=== PATIENT | male | born 1940 | race Asian ===

== ENCOUNTER 2024-08-15 13:13 | Inpatient (IN) | payer BC ==
[~2024-08-15] VITALS: Ht 160 cm; Wt 57.6 kg
[2024-08-15] VITALS (13 sets, daily range): BP systolic 75–133; BP diastolic 35–73; TEMP 99.9; O2SAT 91–95
[2024-08-15] MEDS: IV LR 1000 ML 1,000 ML BAG IV ONE (13:43)
[2024-08-15] MEDS: CEFEPIME 1 GM in IV D5W 50 ML IV ONE (13:45)
[2024-08-15] MEDS: VANCOMYCIN 1 GM in IV D5W 250 ML IV ONE (13:45)
[2024-08-15 14:02] LABS: CARBON DIOXIDE 25 mmol/L (21-32); CHLORIDE 98 mmol/L (98-107); CREATININE 1.1 mg/dL (0.6-1.3); GLUCOSE 344 mg/dL (74-106); POTASSIUM 4.6 mmol/L (3.5-5.1); SODIUM SERUM 132 mmol/L (136-145); UREA NITROGEN, BLOOD 27 mg/dL (7-18)
[2024-08-15 14:07] LABS: BASOPHILS # (AUTO) 0.1 K/uL (0.0-0.2); BASOPHILS % (AUTO) 0.7 % (0.0-2.0); EOSINOPHILS # (AUTO) 0.2 K/uL (0.0-0.7); EOSINOPHILS % (AUTO) 2.7 % (0.0-6.0); HEMATOCRIT 30 % (39-51); HEMOGLOBIN 10.1 g/dL (13.5-17.5); LYMPHOCYTES # (AUTO) 0.2 K/uL (0.8-4.8); LYMPHOCYTES % (AUTO) 2.2 % (20.0-44.0); MEAN CORPUSCULAR HEMOGLOBIN 27 PG (26.0-33.0); MEAN CORPUSCULAR HGB CONC 33 g/dl (31.0-36.0); MEAN CORPUSCULAR VOLUME 81 fL (80-96); MONOCYTES # (AUTO) 0.6 K/uL (0.1-1.30); MONOCYTES % (AUTO) 7.8 % (2.0-12.0); NEUTROPHILS # (AUTO) 6.9 K/uL (1.8-8.9); NEUTROPHILS % (AUTO) 86.6 % (43.0-81.0); PLATELET COUNT (AUTO) 452 K/uL (150-450); RED BLOOD CELL COUNT(AUTO) 3.75 MIL/uL (4.5-6.0); RED CELL DISTRIBUTION WIDTH 19.1 % (11.5-15.0); WHITE BLOOD COUNT (AUTO) 7.9 K/uL (4.3-11.0)
[2024-08-15 14:08] LABS: ALANINE AMINOTRANSFERASE 26 U/L (12-78); ALBUMIN 2.5 g/dL (3.4-5.0); ALKALINE PHOSPHATASE 118 U/L (46-116); ASPARTATE AMINOTRANSFERASE 26 U/L (15-37); BILIRUBIN,DIRECT 0.2 mg/dL (0.0-0.2); BILIRUBIN,TOTAL 0.7 mg/dL (0.2-1.0)
[2024-08-15 14:14] LABS: LACTIC ACID 2.8 mmol/L (0.4-2.0)
[2024-08-15 14:16] LABS: INR 1.08 (0.91-1.10); PARTIAL THROMBOPLASTIN TIME 26.7 SEC (24.3-34.3); PROTHROMBIN TIME 11.4 SECS (9.2-11.1)
[2024-08-15] MEDS ORDERED: CARV3.12 PO (14:16)
[2024-08-15] MEDS ORDERED: LEVO5TAB13 PO (14:16)
[2024-08-15] MEDS ORDERED: FURO-145 PO (14:16)
[2024-08-15] MEDS ORDERED: SACU1TAB PO (14:16)
[2024-08-15] MEDS ORDERED: EPLE25TA10 PO (14:16)
[2024-08-15] MEDS ORDERED: GABA300C PO (14:16)
[2024-08-15] MEDS ORDERED: OMEP20CA15 PO (14:16)
[2024-08-15] MEDS ORDERED: SITA100T PO (14:17)
[2024-08-15] MEDS ORDERED: GLIP5TAB13 PO (14:17)
[2024-08-15] MEDS ORDERED: MULT-1169 PO (14:17)
[2024-08-15] MEDS ORDERED: EMPA25TA PO (14:17)
[2024-08-15] MEDS ORDERED: ATOR40TA PO (14:17)
[2024-08-15] MEDS ORDERED: CHOL100062 PO (14:17)
[2024-08-15] MEDS ORDERED: FINA5TAB11 PO (14:17)
[2024-08-15] MEDS ORDERED: NORT25CA PO (14:17)
[2024-08-15] MEDS ORDERED: [UNRECOGNIZED DRUG - OTHER] PO (14:17)
[2024-08-15] MEDS ORDERED: HYDR-500 PO (14:17)
[2024-08-15] MEDS ORDERED: ATOV750O4 PO (14:17)
[2024-08-15] MEDS ORDERED: ASPI-1169 PO (14:17)
[2024-08-15] MEDS ORDERED: MIRT7.5T10 PO (14:17)
[2024-08-15] MEDS ORDERED: CALC-1239 PO (14:17)
[2024-08-15] MEDS ORDERED: MAGN400T26 PO (14:17)
[2024-08-15] MEDS ORDERED: MUPI15CR TP (14:17)
[2024-08-15] MEDS ORDERED: TAMS-12 PO (14:17)
[2024-08-15] MEDS ORDERED: AZEL137S7 NS (14:17)
[2024-08-15] MEDS ORDERED: METF-442 PO (14:17)
[2024-08-15] MEDS: ACETAMINOPHEN ES 500 MG TABLET PO ONE (14:51)
[2024-08-15] MEDS ORDERED: ACETAMINOPHEN ES 500 MG TABLET ONE (14:51)
[2024-08-15 16:24] LABS: APPEARANCE,URINE CLEAR (CLEAR); BILIRUBIN,URINE NEGATIVE (NEGATIVE); BLOOD, URINE NEGATIVE Ery/uL (NEGATIVE); COLOR,URINE YELLOW (YELLOW); KETONES,URINE NEGATIVE (NEGATIVE); LEUKOCYTE ESTERASE ,URINE NEGATIVE (NEGATIVE); NITRITE, URINE NEGATIVE (NEGATIVE); PH,URINE 5.5 (5.0-8.0); PROTEIN,URINE NEGATIVE (NEGATIVE); UGLUCOSE 3+ mg/dL (NEGATIVE); UROBILINOGEN,URINE 0.2 EU/dL (0.2)
[2024-08-15 16:40] LABS: ADD URINE CULTURE NO; BACTERIA,URINE None seen /HPF (None Seen); RBC,URINE 0-2 /HPF (0-2); WBC,URINE 0-2 /HPF (0-3)
[2024-08-15 16:41] LABS: FINE GRANULAR CASTS,URINE Few /LPF (None Seen); HYALINE CASTS, URINE Few /LPF (None Seen); TRICHOMONAS,URINE None Seen /HPF (None Seen); URIC ACID CRYSTALS,URINE Few /HPF (None Seen); YEAST,URINE Rare /HPF (None Seen)
[2024-08-15] MEDS: IV NS 0.9% 1,000 ML BAG IV ONE (16:53)
[2024-08-15] MEDS ORDERED: NOREPINEPHRINE 8MG/250ML RTU 250 ML IV ONE (18:23)
[2024-08-15] MEDS: NOREPINEPHRINE 8 MG in IV D5W 242 ML IV PRN (18:37)
[2024-08-15] MEDS: LET SOLN TOPICAL 8 ML UDC TP ONE (18:51)
[2024-08-15] MEDS ORDERED: PHENYLEPHRINE 10 MG/ML VIAL ONE ×3 (18:53→20:00)
[2024-08-15] MEDS ORDERED: ONDANSETRON HCL/PF 4 MG/2 ML VIAL IVP PRN (20:00)
[2024-08-15] MEDS ORDERED: Z GUARD REMEDY 4 OZ OINT TP PRN (20:00)
[2024-08-15] MEDS ORDERED: NOREPINEPHRINE 8 MG in IV D5W 242 ML IV PRN (20:00)
[2024-08-15] MEDS: PHENYLEPHRINE 50 MG in IV NS 0.9% 245 ML IV PRN ×2 (20:11→20:49)
[2024-08-15] MEDS: IV LR 1000 ML 1,000 ML IV PRN (21:04)
[2024-08-15] MEDS: ENOXAPARIN SODIUM 40 MG/0.4 ML DISP.SYRIN SQ SCH (21:47)
[2024-08-15] MEDS: ATORVASTATIN 40 MG TABLET PO SCH (21:48)
[2024-08-16] VITALS (109 sets, daily range): BP systolic 50–158; BP diastolic 37–135; TEMP 97.8–99.9; O2SAT 74–100
[2024-08-16] MEDS: ACETAMINOPHEN 325 MG TABLET PO PRN (00:06)
[2024-08-16] MEDS: PHENYLEPHRINE 10 MG/ML VIAL ONE (01:37)
[2024-08-16] MEDS: diphenhydrAMINE HCL ELIX 25 MG/10 ML UDC PO PRN (01:55)
[2024-08-16] MEDS ORDERED: CEFEPIME 1 GM VIAL IM SCH (02:00)
[2024-08-16] MEDS ORDERED: CEFEPIME 1 GM VIAL ONE (02:05)
[2024-08-16] MEDS: CEFEPIME 1 GM in IV NS 0.9% 100 ML IV ONE (02:39)
[2024-08-16] MEDS: NOREPINEPHRINE 8 MG in IV D5W 242 ML IV PRN (03:41)
[2024-08-16 04:24] LABS: BASOPHILS # (AUTO) 0.1 K/uL (0.0-0.2); BASOPHILS % (AUTO) 1.2 % (0.0-2.0); EOSINOPHILS # (AUTO) 0.5 K/uL (0.0-0.7); EOSINOPHILS % (AUTO) 4.5 % (0.0-6.0); HEMATOCRIT 26 % (39-51); HEMOGLOBIN 8.7 g/dL (13.5-17.5); LYMPHOCYTES # (AUTO) 0.1 K/uL (0.8-4.8); MEAN CORPUSCULAR HEMOGLOBIN 27 PG (26.0-33.0); MEAN CORPUSCULAR HGB CONC 34 g/dl (31.0-36.0); MEAN CORPUSCULAR VOLUME 80 fL (80-96); MONOCYTES # (AUTO) 0.3 K/uL (0.1-1.30); MONOCYTES % (AUTO) 2.7 % (2.0-12.0); NEUTROPHILS % (AUTO) 90.6 % (43.0-81.0); PLATELET COUNT (AUTO) 384 K/uL (150-450); RED BLOOD CELL COUNT(AUTO) 3.25 MIL/uL (4.5-6.0); RED CELL DISTRIBUTION WIDTH 19.3 % (11.5-15.0)
[2024-08-16 04:37] LABS: CARBON DIOXIDE 23 mmol/L (21-32); CHLORIDE 103 mmol/L (98-107); CREATININE 1.5 mg/dL (0.6-1.3); GLUCOSE 226 mg/dL (74-106); MAGNESIUM 1.3 mg/dL (1.8-2.4); PHOSPHORUS 4.1 mg/dL (2.5-4.9); POTASSIUM 3.8 mmol/L (3.5-5.1); SODIUM SERUM 137 mmol/L (136-145); UREA NITROGEN, BLOOD 29 mg/dL (7-18)
[2024-08-16 04:40] LABS: CHOLESTEROL 58 mg/dL (<200); HDL CHOLESTEROL 24 mg/dL (40-60); LDL 25 mg/dL (0-99); TRIGLYCERIDES 77 mg/dL (30-150)
[2024-08-16 05:11] LABS: ANISOCYTOSIS 2+; BAND % (MANUAL) 8 % (0.0-5.0); BASOPHILS % (MANUAL) 1 % (0.0-2.0); EOSINOPHILS % (MANUAL) 4 % (0-4); LYMPHOCYTES % (MANUAL) 1 % (16-48); MONOCYTES % (MANUAL) 3 % (0-11.0); MYELOCYTES % 8 % (0-0); NEUTROPHILS % (MANUAL) 75 (42-76); PLATELET ESTIMATE ADEQUATE
[2024-08-16 05:12] LABS: OVALOCYTES 2+
[2024-08-16 05:39] LABS: ABG BASE EXCESS -0.8 mmol/L (-2.0-3.0); ABG OXYGEN SATURATION 92.8 % (94.0-98.0); ABG PCO2 32.3 mmHg (35.0-48.0); ABG PO2 68.2 mmHg (83.0-108.0); COHb 0.3 % (0.5-1.5); MetHb 0.3 % (0.0-1.5); O2Hb 92.2 % (94.0-97.0); SITE, ABG RIGHT BRACHIAL
[2024-08-16] MEDS ORDERED: HEPARIN INFUSION/D5W 500 ML IV PRN (09:30)
[2024-08-16] MEDS: GABAPENTIN 300 MG CAPSULE PO SCH (09:54)
[2024-08-16] MEDS: ASPIRIN 81 MG TAB.CHEW PO SCH (09:54)
[2024-08-16] MEDS: MAGNESIUM OXIDE 400 MG TABLET PO ONE (10:42)
[2024-08-16] MEDS: dexaMETHasone SOD PHOSPHATE 10 MG/ML VIAL IV ONE (10:42)
[2024-08-16] MEDS: HEPARIN INFUSION/D5W 500 ML IV PRN (11:18)
[2024-08-16] MEDS: VANCOMYCIN 1 GM in IV D5W 250ml IV SCH (12:22)
[2024-08-16] MEDS ORDERED: hydrOXYzine HCL SYRUP 10 MG/5 ML UDC PO PRN (12:30)
[2024-08-16] MEDS: hydrOXYzine 10 MG TABLET PO PRN (12:50)
[2024-08-16 12:59] LABS: THYROID STIMULATING HORMONE 0.49 uIU/mL (0.358-3.74)
[2024-08-16] MEDS ORDERED: CEFEPIME 1 GM VIAL IV SCH (14:00)
[2024-08-16] MEDS: REMDESIVIR (CHARGED) 200 MG, *LOADING DOSE 1 EA in IV NS 0.9% 210 ML IV ONE (14:52)
[2024-08-16] MEDS: CEFEPIME 1 GM in IV D5W 50 ML IV SCH (16:23)
[2024-08-17] VITALS (105 sets, daily range): BP systolic 82–147; BP diastolic 44–125; TEMP 97.6–98.4; O2SAT 83–100
[2024-08-17 03:10] LABS: APPEARANCE,URINE CLEAR (CLEAR); BILIRUBIN,URINE NEGATIVE (NEGATIVE); BLOOD, URINE NEGATIVE Ery/uL (NEGATIVE); COLOR,URINE YELLOW (YELLOW); KETONES,URINE NEGATIVE (NEGATIVE); LEUKOCYTE ESTERASE ,URINE NEGATIVE (NEGATIVE); NITRITE, URINE NEGATIVE (NEGATIVE); PH,URINE 5.5 (5.0-8.0); PROTEIN,URINE NEGATIVE (NEGATIVE); UGLUCOSE 3+ mg/dL (NEGATIVE); UROBILINOGEN,URINE 0.2 EU/dL (0.2)
[2024-08-17 03:26] LABS: CREATININE, URINE 46.9 MG/DL (30.0-125.0); URINE TOTAL PROTEIN 31.8 mg/dL (0-11.9)
[2024-08-17 04:08] LABS: EOSINOPHIL,URINE None Seen
[2024-08-17 04:26] LABS: BASOPHILS # (AUTO) 0.6 K/uL (0.0-0.2); BASOPHILS % (AUTO) 3.6 % (0.0-2.0); EOSINOPHILS # (AUTO) 1.1 K/uL (0.0-0.7); EOSINOPHILS % (AUTO) 6.9 % (0.0-6.0); HEMATOCRIT 28 % (39-51); HEMOGLOBIN 9.2 g/dL (13.5-17.5); LYMPHOCYTES # (AUTO) 0.2 K/uL (0.8-4.8); LYMPHOCYTES % (AUTO) 1.4 % (20.0-44.0); MEAN CORPUSCULAR HEMOGLOBIN 26 PG (26.0-33.0); MEAN CORPUSCULAR HGB CONC 33 g/dl (31.0-36.0); MEAN CORPUSCULAR VOLUME 78 fL (80-96); MONOCYTES # (AUTO) 0.4 K/uL (0.1-1.30); MONOCYTES % (AUTO) 2.5 % (2.0-12.0); NEUTROPHILS # (AUTO) 13.1 K/uL (1.8-8.9); NEUTROPHILS % (AUTO) 85.6 % (43.0-81.0); PLATELET COUNT (AUTO) 352 K/uL (150-450); RED BLOOD CELL COUNT(AUTO) 3.54 MIL/uL (4.5-6.0); WHITE BLOOD COUNT (AUTO) 15.3 K/uL (4.3-11.0)
[2024-08-17 04:38] LABS: INR 1.32 (0.91-1.10); PARTIAL THROMBOPLASTIN TIME 61.8 SEC (24.3-34.3); PROTHROMBIN TIME 13.7 SECS (9.2-11.1)
[2024-08-17 04:41] LABS: ALBUMIN 1.9 g/dL (3.4-5.0); BILIRUBIN,DIRECT 0.2 mg/dL (0.0-0.2); BILIRUBIN,TOTAL 0.4 mg/dL (0.2-1.0); TOTAL PROTEIN, SERUM 4.8 g/dL (6.4-8.2)
[2024-08-17 04:44] LABS: ALANINE AMINOTRANSFERASE 23 U/L (12-78); ALBUMIN 1.8 g/dL (3.4-5.0); ALKALINE PHOSPHATASE 101 U/L (46-116); ASPARTATE AMINOTRANSFERASE 21 U/L (15-37); BILIRUBIN,TOTAL 0.4 mg/dL (0.2-1.0); CALCIUM, SERUM 8.6 mg/dL (8.5-10.1); CARBON DIOXIDE 26 mmol/L (21-32); CHLORIDE 106 mmol/L (98-107); CREATININE 1.1 mg/dL (0.6-1.3); GLUCOSE 254 mg/dL (74-106); MAGNESIUM 1.9 mg/dL (1.8-2.4); PHOSPHORUS 2.8 mg/dL (2.5-4.9); SODIUM SERUM 139 mmol/L (136-145); TOTAL PROTEIN, SERUM 4.9 g/dL (6.4-8.2); UREA NITROGEN, BLOOD 28 mg/dL (7-18)
[2024-08-17 04:46] LABS: CREATINE KINASE, TOTAL 215 U/L (39-308)
[2024-08-17 05:38] LABS: ANISOCYTOSIS 1+; BAND % (MANUAL) 15 % (0.0-5.0); EOSINOPHILS % (MANUAL) 5 % (0-4); LYMPHOCYTES % (MANUAL) 1 % (16-48); METAMYELOCYTES % 10 % (0-0); MONOCYTES % (MANUAL) 2 % (0-11.0); MYELOCYTES % 16 % (0-0); NEUTROPHILS % (MANUAL) 51 (42-76); PLATELET ESTIMATE ADEQUATE
[2024-08-17 05:39] LABS: OVALOCYTES 2+
[2024-08-17] MEDS: dexaMETHasone SOD PHOSPHATE 10 MG/ML VIAL IV SCH (08:43)
[2024-08-17] MEDS: CEFEPIME 2 GM in IV D5W 100 ML IV SCH (08:43)
[2024-08-17] MEDS: ATOVAQUONE SUSP 750 MG/5 ML PACKET PO SCH (09:00)
[2024-08-17] MEDS ORDERED: BLOOD SUGAR DIAGNOSTIC 1 EACH STRIP IN SCH (12:00)
[2024-08-17] MEDS ORDERED: DEXTROSE 50%-WATER 50 ML DISP.SYRIN IV PRN (12:00)
[2024-08-17 12:06] LABS: *BANDS 24 % (Not Estab.); *BASOS 0 % (Not Estab.); *COMMENTS Note: (.); *EOS 16 % (Not Estab.); *HCT 29.8 % (37.5-51.0); *HGB 9.5 g/dL (13.0-17.7); *LYMPHOCYTES 2 % (Not Estab.); *LYMPHS, ABSOLUTE 0.3 x10E3/uL (0.7-3.1); *MCH 26.8 pg (26.6-33.0); *MCHC 31.9 g/dL (31.5-35.7); *MCV 84 fL (79-97); *MONOCYTES 2 % (Not Estab.); *MONOS, ABSOLUTE 0.3 x10E3/uL (0.1-0.9); *NEUTROPHILS 25 % (Not Estab.); *NEUTROPHILS, ABSOLUTE 6.1 x10E3/uL (1.4-7.0); *PLT 425 x10E3/uL (150-450); *RBC 3.54 x10E6/uL (4.14-5.80); *RDW 16.8 % (11.6-15.4); *WBC 12.5 x10E3/uL (3.4-10.8)
[2024-08-17] MEDS: BLOOD SUGAR DIAGNOSTIC 1 EACH STRIP VI SCH (12:16)
[2024-08-17] MEDS ORDERED: VANCOMYCIN HCL 1.25 GM in IV D5W 250 ML IV SCH (13:00)
[2024-08-17] MEDS: INSULIN REGULAR, HUMAN 100 UNIT/ML 3 ML VIAL SQ PRN (13:07)
[2024-08-17] MEDS: SULFAMETHOXAZOLE/TRIMETHOPRIM 20 ML in IV D5W 500 ML IV SCH (13:08)
[2024-08-17] MEDS: REMDESIVIR (CHARGED) 100 MG in IV NS 0.9% 80 ML IV SCH (13:09)
[2024-08-17] MEDS: IV NS 0.9% 250 ML IV PRN (13:24)
[2024-08-17] MEDS: *INSULIN REGULAR(HUMULIN R)HUM 100 UNIT/ML VIAL SQ PRN (21:45)
[2024-08-17] MEDS: AZITHROMYCIN 250 MG TABLET PO SCH (22:30)
[2024-08-17 23:07] LABS: FREE KAPPA LT CHAINS SERUM 20.7 mg/L (3.3-19.4); KAPPA/LAMBDA RATIO SERUM 1.09 (0.26-1.65)
[2024-08-18] VITALS (98 sets, daily range): BP systolic 43–153; BP diastolic 25–129; TEMP 96.8–97.8; O2SAT 81–100
[2024-08-18 02:11] LABS: FOLIC ACID 11.7 ng/mL (>3.0)
[2024-08-18 03:07] LABS: HAPTOGLOBIN 307 mg/dL (38-329); IMMUNOGLOBULIN A, SERUM 322 mg/dL (61-437); IMMUNOGLOBULIN G, SERUM 428 mg/dL (603-1613); IMMUNOGLOBULIN M, SERUM 27 mg/dL (15-143)
[2024-08-18 05:00] LABS: BASOPHILS # (AUTO) 0.5 K/uL (0.0-0.2); EOSINOPHILS # (AUTO) 1.3 K/uL (0.0-0.7); EOSINOPHILS % (AUTO) 8.3 % (0.0-6.0); HEMATOCRIT 27 % (39-51); HEMOGLOBIN 8.8 g/dL (13.5-17.5); LYMPHOCYTES # (AUTO) 0.3 K/uL (0.8-4.8); LYMPHOCYTES % (AUTO) 1.7 % (20.0-44.0); MEAN CORPUSCULAR HEMOGLOBIN 26 PG (26.0-33.0); MEAN CORPUSCULAR HGB CONC 33 g/dl (31.0-36.0); MEAN CORPUSCULAR VOLUME 79 fL (80-96); MONOCYTES # (AUTO) 0.5 K/uL (0.1-1.30); MONOCYTES % (AUTO) 3.2 % (2.0-12.0); NEUTROPHILS # (AUTO) 12.8 K/uL (1.8-8.9); NEUTROPHILS % (AUTO) 83.8 % (43.0-81.0); PLATELET COUNT (AUTO) 319 K/uL (150-450); RED BLOOD CELL COUNT(AUTO) 3.38 MIL/uL (4.5-6.0); WHITE BLOOD COUNT (AUTO) 15.3 K/uL (4.3-11.0)
[2024-08-18 05:12] LABS: INR 1.22 (0.91-1.10); PARTIAL THROMBOPLASTIN TIME 48.7 SEC (24.3-34.3); PROTHROMBIN TIME 12.8 SECS (9.2-11.1)
[2024-08-18 05:41] LABS: ALANINE AMINOTRANSFERASE 32 U/L (12-78); ALBUMIN 1.8 g/dL (3.4-5.0); ALKALINE PHOSPHATASE 108 U/L (46-116); ASPARTATE AMINOTRANSFERASE 26 U/L (15-37); BILIRUBIN,DIRECT 0.2 mg/dL (0.0-0.2); BILIRUBIN,TOTAL 0.3 mg/dL (0.2-1.0); CALCIUM, SERUM 8.5 mg/dL (8.5-10.1); CARBON DIOXIDE 23 mmol/L (21-32); CHLORIDE 104 mmol/L (98-107); CREATININE 0.8 mg/dL (0.6-1.3); GLUCOSE 172 mg/dL (74-106); POTASSIUM 4.2 mmol/L (3.5-5.1); SODIUM SERUM 136 mmol/L (136-145); TOTAL PROTEIN, SERUM 4.7 g/dL (6.4-8.2); UREA NITROGEN, BLOOD 27 mg/dL (7-18)
[2024-08-18 05:46] LABS: BAND % (MANUAL) 14 % (0.0-5.0); EOSINOPHILS % (MANUAL) 6 % (0-4); METAMYELOCYTES % 7 % (0-0); MONOCYTES % (MANUAL) 4 % (0-11.0); MYELOCYTES % 9 % (0-0); NEUTROPHILS % (MANUAL) 60 (42-76); PLATELET ESTIMATE ADEQU
[2024-08-18 05:47] LABS: ANISOCYTOSIS 2+
[2024-08-18 05:48] LABS: OVALOCYTES 1+
[2024-08-18 05:56] LABS: LYMPHOCYTES % (MANUAL) 0 % (16-48)
[2024-08-18 08:06] LABS: PTH, INTACT 9 pg/mL (15-65)
[2024-08-18] MEDS: ENOXAPARIN SODIUM 40 MG/0.4 ML DISP.SYRIN SQ SCH (10:34)
[2024-08-18 16:02] LABS: ABG BASE EXCESS -4.8 mmol/L (-2.0-3.0); ABG PCO2 34.6 mmHg (35.0-48.0); ABG PH 7.375 (7.350-7.450); ABG PO2 20.7 mmHg (83.0-108.0); COHb 0.3 % (0.5-1.5); MetHb 0.8 % (0.0-1.5); O2Hb 30.7 % (94.0-97.0); SITE, ABG LEFT RADIAL
[2024-08-19] VITALS (95 sets, daily range): BP systolic 73–167; BP diastolic 42–133; TEMP 97.7–97.9; O2SAT 94–100
[2024-08-19 05:10] LABS: *BANDS 9 % (Not Estab.); *BASOS 0 % (Not Estab.); *COMMENTS Note: (.); *EOS 5 % (Not Estab.); *EOS, ABSOLUTE 0.7 x10E3/uL (0.0-0.4); *HCT 29.4 % (37.5-51.0); *HGB 9.3 g/dL (13.0-17.7); *LYMPHOCYTES 2 % (Not Estab.); *LYMPHS, ABSOLUTE 0.3 x10E3/uL (0.7-3.1); *MCH 26.3 pg (26.6-33.0); *MCHC 31.6 g/dL (31.5-35.7); *MCV 83 fL (79-97); *MONOCYTES 4 % (Not Estab.); *MONOS, ABSOLUTE 0.6 x10E3/uL (0.1-0.9); *NEUTROPHILS 67 % (Not Estab.); *NEUTROPHILS, ABSOLUTE 10.7 x10E3/uL (1.4-7.0); *PLT 373 x10E3/uL (150-450); *RBC 3.53 x10E6/uL (4.14-5.80); *WBC 14.1 x10E3/uL (3.4-10.8)
[2024-08-19 05:11] LABS: ALANINE AMINOTRANSFERASE 31 U/L (12-78); ALBUMIN 1.8 g/dL (3.4-5.0); ALKALINE PHOSPHATASE 115 U/L (46-116); ASPARTATE AMINOTRANSFERASE 16 U/L (15-37); BILIRUBIN,DIRECT 0.2 mg/dL (0.0-0.2); BILIRUBIN,TOTAL 0.3 mg/dL (0.2-1.0); CALCIUM, SERUM 8.3 mg/dL (8.5-10.1); CARBON DIOXIDE 25 mmol/L (21-32); CHLORIDE 103 mmol/L (98-107); CREATININE 0.8 mg/dL (0.6-1.3); GLUCOSE 250 mg/dL (74-106); MAGNESIUM 1.9 mg/dL (1.8-2.4); PHOSPHORUS 3.2 mg/dL (2.5-4.9); POTASSIUM 4.4 mmol/L (3.5-5.1); SODIUM SERUM 136 mmol/L (136-145); TOTAL PROTEIN, SERUM 4.4 g/dL (6.4-8.2); UREA NITROGEN, BLOOD 23 mg/dL (7-18)
[2024-08-19 05:14] LABS: BASOPHILS % (AUTO) 0.1 % (0.0-2.0); EOSINOPHILS # (AUTO) 0.5 K/uL (0.0-0.7); EOSINOPHILS % (AUTO) 4.7 % (0.0-6.0); HEMATOCRIT 25 % (39-51); HEMOGLOBIN 8.2 g/dL (13.5-17.5); LYMPHOCYTES # (AUTO) 0.3 K/uL (0.8-4.8); LYMPHOCYTES % (AUTO) 2.8 % (20.0-44.0); MEAN CORPUSCULAR HEMOGLOBIN 26 PG (26.0-33.0); MEAN CORPUSCULAR HGB CONC 33 g/dl (31.0-36.0); MEAN CORPUSCULAR VOLUME 78 fL (80-96); MONOCYTES # (AUTO) 0.4 K/uL (0.1-1.30); MONOCYTES % (AUTO) 3.3 % (2.0-12.0); NEUTROPHILS # (AUTO) 10.5 K/uL (1.8-8.9); NEUTROPHILS % (AUTO) 89.1 % (43.0-81.0); PLATELET COUNT (AUTO) 260 K/uL (150-450); RED BLOOD CELL COUNT(AUTO) 3.16 MIL/uL (4.5-6.0); RED CELL DISTRIBUTION WIDTH 19.2 % (11.5-15.0); WHITE BLOOD COUNT (AUTO) 11.8 K/uL (4.3-11.0)
[2024-08-19 05:18] LABS: INR 1.27 (0.91-1.10); PARTIAL THROMBOPLASTIN TIME 32.2 SEC (24.3-34.3); PROTHROMBIN TIME 13.3 SECS (9.2-11.1)
[2024-08-19] MEDS ORDERED: EPINEPHRINE (1:10,000) SYRINGE 1 MG/10 ML DISP.SYRIN IVP ONE (07:41)
[2024-08-19] MEDS: PROPOFOL 100 ML IV PRN (07:54)
[2024-08-19 08:11] LABS: IMMUNOGLOBULIN A, SERUM 293 mg/dL (61-437); IMMUNOGLOBULIN G, SERUM 384 mg/dL (603-1613); IMMUNOGLOBULIN M, SERUM 32 mg/dL (15-143)
[2024-08-19 08:55] LABS: ABG BASE EXCESS -16.3 mmol/L (-2.0-3.0); ABG OXYGEN SATURATION 97.2 % (94.0-98.0); ABG PH 7.011 (7.350-7.450); ABG PO2 151.6 mmHg (83.0-108.0); ABG TOTAL HEMOGLOBIN 9.7 G/dL (13.5-17.5); COHb 0.3 % (0.5-1.5); MetHb 0.5 % (0.0-1.5); O2Hb 96.4 % (94.0-97.0); PEEP,BG 0 cm H2O; SITE, ABG RIGHT FEMORAL; VT, ABG 500 mL
[2024-08-19] MEDS ORDERED: FUROSEMIDE 40 MG/4 ML VIAL IV SCH (09:30)
[2024-08-19] MEDS: FUROSEMIDE 40 MG/4 ML VIAL IV SCH (09:31)
[2024-08-19 11:47] LABS: ABG OXYGEN SATURATION 96.3 % (94.0-98.0); ABG PCO2 40.3 mmHg (35.0-48.0); ABG PH 7.291 (7.350-7.450); ABG PO2 101.3 mmHg (83.0-108.0); ABG TOTAL HEMOGLOBIN 8.5 G/dL (13.5-17.5); COHb 0.2 % (0.5-1.5); MetHb 0.3 % (0.0-1.5); O2Hb 95.8 % (94.0-97.0); PEEP,BG 0 cm H2O; SITE, ABG RIGHT FEMORAL; VT, ABG 525 mL
[2024-08-19 12:12] LABS: BAND % (MANUAL) 8 % (0.0-5.0); EOSINOPHILS % (MANUAL) 5 % (0-4); LYMPHOCYTES % (MANUAL) 4 % (16-48); MONOCYTES % (MANUAL) 3 % (0-11.0); NEUTROPHILS % (MANUAL) 80 (42-76)
[2024-08-19 12:50] LABS: PLATELET ESTIMATE ADEQUATE
[2024-08-19 12:51] LABS: ANISOCYTOSIS 1+
[2024-08-19 13:10] LABS: *ABSOLUTE CD 4 HELPER 216 /uL (359-1519); *ABSOLUTE CD 8 SUPPRESSOR 36 /uL (109-897)
[2024-08-19] MEDS: MEROPENEM 1 G in IV NS 0.9% 100 ML IV SCH (21:22)
[2024-08-19] MEDS: MICAFUNGIN SODIUM 100 MG in IV NS 0.9% 100 ML IV SCH (21:22)
[2024-08-19] MEDS: ACYCLOVIR 200 MG CAPSULE PO SCH (21:32)
[2024-08-20] VITALS (93 sets, daily range): BP systolic 86–127; BP diastolic 48–71; TEMP 96.6–98.5; O2SAT 96–100
[2024-08-20 05:10] LABS: BASOPHILS # (AUTO) 0.1 K/uL (0.0-0.2); BASOPHILS % (AUTO) 1.3 % (0.0-2.0); EOSINOPHILS # (AUTO) 0.1 K/uL (0.0-0.7); EOSINOPHILS % (AUTO) 0.9 % (0.0-6.0); HEMATOCRIT 23 % (39-51); HEMOGLOBIN 7.9 g/dL (13.5-17.5); LYMPHOCYTES # (AUTO) 0.5 K/uL (0.8-4.8); LYMPHOCYTES % (AUTO) 5.3 % (20.0-44.0); MEAN CORPUSCULAR HEMOGLOBIN 27 PG (26.0-33.0); MEAN CORPUSCULAR HGB CONC 34 g/dl (31.0-36.0); MEAN CORPUSCULAR VOLUME 78 fL (80-96); MONOCYTES # (AUTO) 0.2 K/uL (0.1-1.30); NEUTROPHILS # (AUTO) 9.2 K/uL (1.8-8.9); NEUTROPHILS % (AUTO) 90.5 % (43.0-81.0); PLATELET COUNT (AUTO) 164 K/uL (150-450); RED BLOOD CELL COUNT(AUTO) 2.97 MIL/uL (4.5-6.0); RED CELL DISTRIBUTION WIDTH 19.2 % (11.5-15.0); WHITE BLOOD COUNT (AUTO) 10.2 K/uL (4.3-11.0)
[2024-08-20 05:13] LABS: ALANINE AMINOTRANSFERASE 30 U/L (12-78); ALBUMIN 1.7 g/dL (3.4-5.0); ALKALINE PHOSPHATASE 143 U/L (46-116); ASPARTATE AMINOTRANSFERASE 21 U/L (15-37); BILIRUBIN,DIRECT 0.1 mg/dL (0.0-0.2); BILIRUBIN,TOTAL 0.3 mg/dL (0.2-1.0); CALCIUM, SERUM 7.6 mg/dL (8.5-10.1); CARBON DIOXIDE 26 mmol/L (21-32); CHLORIDE 104 mmol/L (98-107); CREATININE 1.3 mg/dL (0.6-1.3); GLUCOSE 175 mg/dL (74-106); PHOSPHORUS 3.3 mg/dL (2.5-4.9); POTASSIUM 3.8 mmol/L (3.5-5.1); SODIUM SERUM 141 mmol/L (136-145); TOTAL PROTEIN, SERUM 4.1 g/dL (6.4-8.2); UREA NITROGEN, BLOOD 30 mg/dL (7-18)
[2024-08-20 05:34] LABS: INR 1.31 (0.91-1.10); PARTIAL THROMBOPLASTIN TIME 34.5 SEC (24.3-34.3); PROTHROMBIN TIME 13.6 SECS (9.2-11.1)
[2024-08-20 05:36] LABS: D-DIMER 10.98 mg/L(FEU (0.17-0.50)
[2024-08-20 07:09] LABS: *SPE ALBUMIN 1.9 g/dL (2.9-4.4); *SPE ALPHA-1-GLOBULIN 0.3 g/dL (0.0-0.4); *SPE ALPHA-2-GLOBULIN 0.8 g/dL (0.4-1.0); *SPE BETA GLOBULIN 0.7 g/dL (0.7-1.3); *SPE M-SPIKE 0.1 g/dL (Not Observed); *SPE PROTEIN TOTAL 3.9 g/dL (6.0-8.5); *SPEGAMMA GLOBULIN 0.3 g/dL (0.4-1.8)
[2024-08-20 08:11] LABS: *SPE A/G RATIO 0.9 (0.7-1.7); *SPE ALPHA-1-GLOBULIN 0.3 g/dL (0.0-0.4); *SPE ALPHA-2-GLOBULIN 0.9 g/dL (0.4-1.0); *SPE BETA GLOBULIN 0.7 g/dL (0.7-1.3); *SPE GLOBULIN, TOTAL 2.3 g/dL (2.2-3.9); *SPE M-SPIKE Not Observed g/dL (Not Observed); *SPE PROTEIN TOTAL 4.3 g/dL (6.0-8.5); *SPEGAMMA GLOBULIN 0.5 g/dL (0.4-1.8)
[2024-08-20 08:32] LABS: ABG BASE EXCESS -0.5 mmol/L (-2.0-3.0); ABG PCO2 30.8 mmHg (35.0-48.0); ABG PH 7.482 (7.350-7.450); ABG PO2 101.2 mmHg (83.0-108.0); ABG TOTAL HEMOGLOBIN 8.7 G/dL (13.5-17.5); COHb 0.3 % (0.5-1.5); MetHb 0.5 % (0.0-1.5); O2Hb 96.2 % (94.0-97.0); PEEP,BG 5 cm H2O; SITE, ABG RIGHT RADIAL; VT, ABG 525 mL
[2024-08-20] MEDS: GLUCERNA 1.2 1,000 ML BOTTLE NG PRN (10:56)
[2024-08-20 13:27] LABS: HEMOGLOBIN 7.5 g/dL (13.5-17.5)
[2024-08-20 19:10] LABS: *MYCOPLASMA PNEUMONIAE IgG 187 U/mL (0-99); *MYCOPLASMA PNEUMONIAE IgM <770 U/mL (0-769)
[2024-08-21] VITALS (68 sets, daily range): BP systolic 90–141; BP diastolic 51–76; TEMP 97.1–98.3; O2SAT 94–100
[2024-08-21] MEDS: ACETAMINOPHEN 325 MG TABLET PO ONE (02:10)
[2024-08-21] MEDS: diphenhydrAMINE HCL 50 MG/ML VIAL IV ONE (02:10)
[2024-08-21 05:09] LABS: BASOPHILS % (AUTO) 0.4 % (0.0-2.0); EOSINOPHILS # (AUTO) 0.3 K/uL (0.0-0.7); HEMATOCRIT 25 % (39-51); HEMOGLOBIN 8.5 g/dL (13.5-17.5); LYMPHOCYTES # (AUTO) 1.1 K/uL (0.8-4.8); LYMPHOCYTES % (AUTO) 9.8 % (20.0-44.0); MEAN CORPUSCULAR HEMOGLOBIN 26 PG (26.0-33.0); MEAN CORPUSCULAR HGB CONC 34 g/dl (31.0-36.0); MEAN CORPUSCULAR VOLUME 77 fL (80-96); MONOCYTES # (AUTO) 1.1 K/uL (0.1-1.30); MONOCYTES % (AUTO) 10.3 % (2.0-12.0); NEUTROPHILS # (AUTO) 8.3 K/uL (1.8-8.9); NEUTROPHILS % (AUTO) 76.5 % (43.0-81.0); PLATELET COUNT (AUTO) 185 K/uL (150-450); RED BLOOD CELL COUNT(AUTO) 3.26 MIL/uL (4.5-6.0); RED CELL DISTRIBUTION WIDTH 19.8 % (11.5-15.0); WHITE BLOOD COUNT (AUTO) 10.8 K/uL (4.3-11.0)
[2024-08-21 05:25] LABS: ALANINE AMINOTRANSFERASE 31 U/L (12-78); ALBUMIN 1.8 g/dL (3.4-5.0); ALKALINE PHOSPHATASE 139 U/L (46-116); ASPARTATE AMINOTRANSFERASE 15 U/L (15-37); BILIRUBIN,DIRECT 0.1 mg/dL (0.0-0.2); BILIRUBIN,TOTAL 0.3 mg/dL (0.2-1.0); CALCIUM, SERUM 7.9 mg/dL (8.5-10.1); CARBON DIOXIDE 26 mmol/L (21-32); CHLORIDE 100 mmol/L (98-107); CREATININE 1.4 mg/dL (0.6-1.3); GLUCOSE 194 mg/dL (74-106); SODIUM SERUM 136 mmol/L (136-145); TOTAL PROTEIN, SERUM 4.5 g/dL (6.4-8.2); UREA NITROGEN, BLOOD 36 mg/dL (7-18)
[2024-08-21 05:57] LABS: INR 1.13 (0.91-1.10); PARTIAL THROMBOPLASTIN TIME 31.3 SEC (24.3-34.3); PROTHROMBIN TIME 11.9 SECS (9.2-11.1)
[2024-08-21 05:58] LABS: D-DIMER 6.32 mg/L(FEU (0.17-0.50)
[2024-08-21] MEDS ORDERED: POTASSIUM CHLORIDE 20 MEQ TAB.PRT.SR PO SCH (09:00)
[2024-08-21] MEDS: FUROSEMIDE 40 MG/4 ML VIAL IV SCH (09:36)
[2024-08-21] MEDS: POTASSIUM CHLORIDE 20 MEQ POWDER PACKET GT SCH (10:17)
[2024-08-21 11:20] LABS: ABG BASE EXCESS -1.6 mmol/L (-2.0-3.0); ABG OXYGEN SATURATION 93.4 % (94.0-98.0); ABG PCO2 31.7 mmHg (35.0-48.0); ABG PH 7.456 (7.350-7.450); ABG PO2 72.5 mmHg (83.0-108.0); ABG TOTAL HEMOGLOBIN 8.8 G/dL (13.5-17.5); COHb 0.6 % (0.5-1.5); MetHb 0.4 % (0.0-1.5); O2Hb 92.5 % (94.0-97.0); PEEP,BG 5 cm H2O; SITE, ABG RIGHT RADIAL; VT, ABG 500 mL
[2024-08-22] VITALS (42 sets, daily range): BP systolic 87–128; BP diastolic 49–73; TEMP 97.4–98.2; O2SAT 95–99
[2024-08-22 04:53] LABS: BASOPHILS # (AUTO) 0.1 K/uL (0.0-0.2); BASOPHILS % (AUTO) 0.8 % (0.0-2.0); EOSINOPHILS # (AUTO) 0.1 K/uL (0.0-0.7); EOSINOPHILS % (AUTO) 0.8 % (0.0-6.0); HEMATOCRIT 24 % (39-51); HEMOGLOBIN 8.2 g/dL (13.5-17.5); LYMPHOCYTES # (AUTO) 1.2 K/uL (0.8-4.8); LYMPHOCYTES % (AUTO) 7.5 % (20.0-44.0); MEAN CORPUSCULAR HEMOGLOBIN 26 PG (26.0-33.0); MEAN CORPUSCULAR HGB CONC 34 g/dl (31.0-36.0); MEAN CORPUSCULAR VOLUME 78 fL (80-96); MONOCYTES # (AUTO) 1.2 K/uL (0.1-1.30); MONOCYTES % (AUTO) 7.7 % (2.0-12.0); NEUTROPHILS % (AUTO) 83.2 % (43.0-81.0); PLATELET COUNT (AUTO) 177 K/uL (150-450); RED BLOOD CELL COUNT(AUTO) 3.11 MIL/uL (4.5-6.0); RED CELL DISTRIBUTION WIDTH 20.3 % (11.5-15.0); WHITE BLOOD COUNT (AUTO) 15.6 K/uL (4.3-11.0)
[2024-08-22 05:08] LABS: D-DIMER 4.27 mg/L(FEU (0.17-0.50); INR 1.08 (0.91-1.10); PARTIAL THROMBOPLASTIN TIME 30.2 SEC (24.3-34.3); PROTHROMBIN TIME 11.4 SECS (9.2-11.1)
[2024-08-22 05:09] LABS: CALCIUM, SERUM 8.2 mg/dL (8.5-10.1); CARBON DIOXIDE 28 mmol/L (21-32); CHLORIDE 97 mmol/L (98-107); CREATININE 1.2 mg/dL (0.6-1.3); GLUCOSE 224 mg/dL (74-106); POTASSIUM 5.8 mmol/L (3.5-5.1); SODIUM SERUM 133 mmol/L (136-145); UREA NITROGEN, BLOOD 46 mg/dL (7-18)
[2024-08-22] MEDS: GLUCERNA 1.2 1,000 ML BOTTLE NG PRN (06:07)
[2024-08-22 06:08] LABS: BAND % (MANUAL) 5 % (0.0-5.0); LYMPHOCYTES % (MANUAL) 14 % (16-48); METAMYELOCYTES % 5 % (0-0); MONOCYTES % (MANUAL) 6 % (0-11.0); MYELOCYTES % 15 % (0-0); NEUTROPHILS % (MANUAL) 55 (42-76)
[2024-08-22 06:09] LABS: ANISOCYTOSIS 2+; HYPOCHROMASIA 1+; OVALOCYTES 1+; PLATELET ESTIMATE ADEQUATE
[2024-08-22] MEDS: SODIUM ZIRCONIUM CYCLOSILICATE 10 GM POWD.PACK PO SCH (09:13)
[2024-08-22 15:16] LABS: CALCIUM, SERUM 8.3 mg/dL (8.5-10.1); CARBON DIOXIDE 30 mmol/L (21-32); CHLORIDE 98 mmol/L (98-107); CREATININE 1.2 mg/dL (0.6-1.3); GLUCOSE 312 mg/dL (74-106); POTASSIUM 5.9 mmol/L (3.5-5.1); SODIUM SERUM 131 mmol/L (136-145); UREA NITROGEN, BLOOD 49 mg/dL (7-18)
[2024-08-22 19:39] LABS: APPEARANCE,URINE SLIGHTLY CLOUDY (CLEAR); BILIRUBIN,URINE NEGATIVE (NEGATIVE); BLOOD, URINE 2+ Ery/uL (NEGATIVE); COLOR,URINE YELLOW (YELLOW); KETONES,URINE NEGATIVE (NEGATIVE); LEUKOCYTE ESTERASE ,URINE NEGATIVE (NEGATIVE); NITRITE, URINE NEGATIVE (NEGATIVE); PROTEIN,URINE NEGATIVE (NEGATIVE); UGLUCOSE 3+ mg/dL (NEGATIVE); UROBILINOGEN,URINE 0.2 EU/dL (0.2)
[2024-08-22 19:43] LABS: RBC,URINE 21-50 /HPF (0-2)
[2024-08-22 19:47] LABS: ADD URINE CULTURE YES; BACTERIA,URINE None seen /HPF (None Seen); SQUAMOUS EPITHELIAL CELL,UR 0-2 /HPF (None Seen); WBC,URINE 0-2 /HPF (0-3); YEAST,URINE Many /HPF (None Seen)
[2024-08-22 19:48] LABS: URIC ACID CRYSTALS,URINE Few /HPF (None Seen)
[2024-08-22 19:55] LABS: OTHER CRYSTALS,URINE MANY /HPF (None Seen)
[2024-08-23] VITALS (55 sets, daily range): BP systolic 40–129; BP diastolic 17–81; TEMP 96.4–98.8; O2SAT 97–100
[2024-08-23 05:37] LABS: BASOPHILS # (AUTO) 0.1 K/uL (0.0-0.2); BASOPHILS % (AUTO) 0.5 % (0.0-2.0); EOSINOPHILS # (AUTO) 0.1 K/uL (0.0-0.7); EOSINOPHILS % (AUTO) 0.3 % (0.0-6.0); LYMPHOCYTES # (AUTO) 1.6 K/uL (0.8-4.8); LYMPHOCYTES % (AUTO) 8.4 % (20.0-44.0); MEAN CORPUSCULAR HEMOGLOBIN 26 PG (26.0-33.0); MEAN CORPUSCULAR HGB CONC 33 g/dl (31.0-36.0); MEAN CORPUSCULAR VOLUME 80 fL (80-96); MONOCYTES # (AUTO) 1.3 K/uL (0.1-1.30); MONOCYTES % (AUTO) 7.1 % (2.0-12.0); NEUTROPHILS # (AUTO) 15.7 K/uL (1.8-8.9); NEUTROPHILS % (AUTO) 83.7 % (43.0-81.0); PLATELET COUNT (AUTO) 162 K/uL (150-450); RED CELL DISTRIBUTION WIDTH 20.8 % (11.5-15.0); WHITE BLOOD COUNT (AUTO) 18.7 K/uL (4.3-11.0)
[2024-08-23 05:42] LABS: D-DIMER 2.46 mg/L(FEU (0.17-0.50); INR 1.13 (0.91-1.10); PARTIAL THROMBOPLASTIN TIME 26.7 SEC (24.3-34.3); PROTHROMBIN TIME 11.9 SECS (9.2-11.1)
[2024-08-23 05:43] LABS: HEMOGLOBIN 5.9 g/dL (13.5-17.5)
[2024-08-23 05:44] LABS: HEMATOCRIT 18 % (39-51)
[2024-08-23 05:45] LABS: ALANINE AMINOTRANSFERASE 23 U/L (12-78); ALKALINE PHOSPHATASE 103 U/L (46-116); ASPARTATE AMINOTRANSFERASE 20 U/L (15-37); BILIRUBIN,TOTAL 0.2 mg/dL (0.2-1.0); CALCIUM, SERUM 8.1 mg/dL (8.5-10.1); CARBON DIOXIDE 31 mmol/L (21-32); CHLORIDE 98 mmol/L (98-107); GLUCOSE 257 mg/dL (74-106); MAGNESIUM 2.1 mg/dL (1.8-2.4); PHOSPHORUS 3.4 mg/dL (2.5-4.9); POTASSIUM 5.7 mmol/L (3.5-5.1); SODIUM SERUM 130 mmol/L (136-145); TOTAL PROTEIN, SERUM 3.5 g/dL (6.4-8.2); UREA NITROGEN, BLOOD 49 mg/dL (7-18)
[2024-08-23 05:49] LABS: ALBUMIN 1.4 g/dL (3.4-5.0)
[2024-08-23 07:48] LABS: ANISOCYTOSIS 2+; BAND % (MANUAL) 7 % (0.0-5.0); EOSINOPHILS % (MANUAL) 1 % (0-4); LYMPHOCYTES % (MANUAL) 12 % (16-48); METAMYELOCYTES % 6 % (0-0); MONOCYTES % (MANUAL) 5 % (0-11.0); MYELOCYTES % 15 % (0-0); NEUTROPHILS % (MANUAL) 54 (42-76); PLATELET ESTIMATE ADEQUATE
[2024-08-23 07:49] LABS: OVALOCYTES 1+
[2024-08-23] MEDS: IV NS 0.9% 1,000 ML IV ONE (08:42)
[2024-08-23] MEDS: NOREPINEPHRINE 8MG/250ML RTU 250 ML IV ONE (08:43)
[2024-08-23] MEDS: SODIUM ZIRCONIUM CYCLOSILICATE 10 GM POWD.PACK NG SCH (09:46)
[2024-08-23] MEDS: SODIUM ZIRCONIUM CYCLOSILICATE 10 GM POWD.PACK NG ONE (09:54)
[2024-08-23 11:15] LABS: ABG BASE EXCESS -12.3 mmol/L (-2.0-3.0); ABG OXYGEN SATURATION 99.2 % (94.0-98.0); ABG PCO2 32.3 mmHg (35.0-48.0); ABG PO2 401.5 mmHg (83.0-108.0); ABG TOTAL HEMOGLOBIN 7.8 G/dL (13.5-17.5); COHb 0.3 % (0.5-1.5); MetHb 0.6 % (0.0-1.5); O2Hb 98.3 % (94.0-97.0); PEEP,BG 5 cm H2O; SITE, ABG RIGHT RADIAL; VT, ABG 475 mL
[2024-08-23] MEDS: VASOPRESSIN INJ 40 UNIT in IV NS 0.9% 38 ML IV PRN (12:55)
[2024-08-23] MEDS: PRIMAQUINE 15 MG TABLET PO SCH (13:00)
[2024-08-23] MEDS: PHENYLEPHRINE 100 MG in IV NS 0.9% 240 ML IV PRN (16:08)
[2024-08-23] MEDS: NOREPINEPHRINE 32 MG in IV NS 0.9% 218 ML IV PRN (16:10)
[2024-08-23] MEDS: SODIUM BICARBONATE SYR 50 MEQ/50 ML DISP.SYRIN IV ONE (16:27)
[2024-08-23] MEDS: CLINDAMYCIN 900 MG in IV D5W 50 ML IV SCH (16:28)
[2024-08-23] MEDS ORDERED: PHYTONADIONE 10 MG in IV D5W 50 ML SQ ONE (16:30)
[2024-08-23] MEDS: ACETAMINOPHEN 325 MG TABLET PO ONE (16:30)
[2024-08-23] MEDS: diphenhydrAMINE HCL 50 MG/ML VIAL IV ONE (16:30)
[2024-08-23 17:32] LABS: BASOPHILS # (AUTO) 0.4 K/uL (0.0-0.2); BASOPHILS % (AUTO) 1.1 % (0.0-2.0); EOSINOPHILS # (AUTO) 0.1 K/uL (0.0-0.7); EOSINOPHILS % (AUTO) 0.3 % (0.0-6.0); HEMATOCRIT 29 % (39-51); HEMOGLOBIN 8.4 g/dL (13.5-17.5); LYMPHOCYTES # (AUTO) 3.7 K/uL (0.8-4.8); LYMPHOCYTES % (AUTO) 9.3 % (20.0-44.0); MEAN CORPUSCULAR HEMOGLOBIN 28 PG (26.0-33.0); MEAN CORPUSCULAR HGB CONC 29 g/dl (31.0-36.0); MEAN CORPUSCULAR VOLUME 97 fL (80-96); MONOCYTES # (AUTO) 2.9 K/uL (0.1-1.30); MONOCYTES % (AUTO) 7.4 % (2.0-12.0); NEUTROPHILS # (AUTO) 32.3 K/uL (1.8-8.9); NEUTROPHILS % (AUTO) 81.9 % (43.0-81.0); PLATELET COUNT (AUTO) 91 K/uL (150-450); RED CELL DISTRIBUTION WIDTH 18.6 % (11.5-15.0)
[2024-08-23 17:39] LABS: WHITE BLOOD COUNT (AUTO) 39.4 K/uL (4.3-11.0)
[2024-08-23] MEDS: PHYTONADIONE 10 MG in IV D5W 50 ML IV ONE (17:48)
[2024-08-23] MEDS ORDERED: Sodium Bicarbonate 150 MEQ in IV NS 0.9% 1,000 ML IV SCH (18:00)
[2024-08-23 18:15] LABS: CALCIUM, SERUM 8.8 mg/dL (8.5-10.1); CARBON DIOXIDE 12 mmol/L (21-32); CHLORIDE 98 mmol/L (98-107); CREATININE 1.6 mg/dL (0.6-1.3); GLUCOSE 193 mg/dL (74-106); SODIUM SERUM 136 mmol/L (136-145); UREA NITROGEN, BLOOD 54 mg/dL (7-18)
[2024-08-23] MEDS ORDERED: LORAZEPAM INJ 2 MG/ML VIAL IV PRN (18:30)
[2024-08-23] MEDS ORDERED: DC PROPOFOL WHEN EXTUBATED XX PRN (18:30)
[2024-08-23 18:32] LABS: POTASSIUM 7.9 mmol/L (3.5-5.1)
[2024-08-23] MEDS: MORPHINE SULFATE INJ 2 MG/ML DISP.SYRIN IV PRN (18:44)
[2024-08-23 21:20] LABS: ANISOCYTOSIS 1+; BAND % (MANUAL) 10 % (0.0-5.0); LYMPHOCYTES % (MANUAL) 9 % (16-48); METAMYELOCYTES % 22 % (0-0); MONOCYTES % (MANUAL) 9 % (0-11.0); MYELOCYTES % 12 % (0-0); NEUTROPHILS % (MANUAL) 38 (42-76); PLATELET ESTIMATE DECRE
[2024-08-23 21:21] LABS: OVALOCYTES RARE
== END 2024-08-23 19:24 | DRG 870 ==
LOC: ER 13:36 → ICU 18:33
PROVIDERS: ADMIT Nurse Practitioner Acute Care; ATTEND Nurse Practitioner Acute Care
PROC: XW033E5 Introduction of Remdesivir Anti-infective into Peripheral Vein, Percutaneous Approach, New Technology Group 5 (ICD-10-PCS; principal; 2024-08-16)
PROC: 5A1955Z Respiratory Ventilation, Greater than 96 Consecutive Hours (ICD-10-PCS; 2024-08-19)
PROC: 0BH17EZ Insertion of Endotracheal Airway into Trachea, Via Natural or Artificial Opening (ICD-10-PCS; 2024-08-19)
PROC: 5A12012 Performance of Cardiac Output, Single, Manual (ICD-10-PCS; 2024-08-19)
PROC: 30233M1 Transfusion of Nonautologous Plasma Cryoprecipitate into Peripheral Vein, Percutaneous Approach (ICD-10-PCS; 2024-08-20)
PROC: 30233N1 Transfusion of Nonautologous Red Blood Cells into Peripheral Vein, Percutaneous Approach (ICD-10-PCS; 2024-08-23)
PROC: 30233K1 Transfusion of Nonautologous Frozen Plasma into Peripheral Vein, Percutaneous Approach (ICD-10-PCS; 2024-08-23)
DX: A41.89 Other specified sepsis (principal); B59 Pneumocystosis; J12.82 Pneumonia due to coronavirus disease 2019; J69.0 Pneumonitis due to inhalation of food and vomit; J96.01 Acute respiratory failure with hypoxia; U07.1 COVID-19; I21.A1 Myocardial infarction type 2; R65.21 Severe sepsis with septic shock; N17.0 Acute kidney failure with tubular necrosis; G92.8 Other toxic encephalopathy; D68.9 Coagulation defect, unspecified; D84.9 Immunodeficiency, unspecified; C91.50 Adult T-cell lymphoma/leukemia (HTLV-1-associated) not having achieved remission; E87.1 Hypo-osmolality and hyponatremia; E87.4 Mixed disorder of acid-base balance; D62 Acute posthemorrhagic anemia; K92.2 Gastrointestinal hemorrhage, unspecified; I11.0 Hypertensive heart disease with heart failure; Z51.5 Encounter for palliative care; Z92.21 Personal history of antineoplastic chemotherapy; I25.10 Atherosclerotic heart disease of native coronary artery without angina pectoris; M89.8X9 Other specified disorders of bone, unspecified site; Z95.1 Presence of aortocoronary bypass graft; I27.20 Pulmonary hypertension, unspecified; I25.2 Old myocardial infarction; Z88.0 Allergy status to penicillin; Z91.041 Radiographic dye allergy status; Z79.84 Long term (current) use of oral hypoglycemic drugs; Z79.899 Other long term (current) drug therapy; Z79.82 Long term (current) use of aspirin; I46.9 Cardiac arrest, cause unspecified; D75.839 Thrombocytosis, unspecified; E11.65 Type 2 diabetes mellitus with hyperglycemia; E78.5 Hyperlipidemia, unspecified; D63.8 Anemia in other chronic diseases classified elsewhere; E86.1 Hypovolemia; E88.09 Other disorders of plasma-protein metabolism, not elsewhere classified; N32.0 Bladder-neck obstruction; Z87.01 Personal history of pneumonia (recurrent); Z79.4 Long term (current) use of insulin; R13.10 Dysphagia, unspecified; N32.3 Diverticulum of bladder; E86.0 Dehydration; J70.4 Drug-induced interstitial lung disorders, unspecified; T45.1X5A Adverse effect of antineoplastic and immunosuppressive drugs, initial encounter; Y92.9 Unspecified place or not applicable
CPT/HCPCS: 31720; 36415; 36600; 71045-TC; 76770-TC; 80048-TC; 80053-TC; 80061-TC; 80076-TC; 81001; 82533; 82550-TC; 82570-TC; 82607-TC; 82728-TC; 82784; 82803-TC; 82962-TC; 83010; 83540-TC; 83605-TC; 83615-TC; 83735-TC; 83970; 84100-TC; 84155; 84165; 84300-TC; 84443-TC; 84478-TC; 84484-TC; 85025-TC; 85027-TC; 85045-TC; 85378-TC; 85385-TC; 85396; 85610-TC; 85652-TC; 85730-TC; 86140-TC; 86334; 86360; 86713; 86738; 86850-TC; 86880-TC; 87040-TC; 87086-TC; 87281; 93307-TC; 93970-TC; 94002-TC; 94003-TC; 94640-TC; 94762-TC; 94799-TC; A4216; A4223; A6253; A6403; G0378; J0171; J0692; J1100; J1200; J1644; J1650; J1815; J1940; J2048; J2185; J2248; J2270; J3370; J3430; J3490; J7030; J7040; J7050; J7060; J7120; P9012; P9016; P9017; Q0163; Q0177